=== PATIENT | male | born 1955 | race Two or more races ===

== ENCOUNTER 2016-10-16 09:48 | Emergency (ER) | payer BC, OTHER ==
[~2016-10-16] VITALS: Ht 167.6 cm; Wt 72.9 kg
[2016-10-16] MEDS ORDERED: IBUPROFEN 200 MG TABLET ONE (10:26)
[2016-10-16] MEDS ORDERED: MECLIZINE CHEWABLE 25 MG TAB ONE (10:26)
[2016-10-16] MEDS ORDERED: IBUPROFEN 200 MG TABLET PO ONE (10:30)
[2016-10-16] MEDS ORDERED: MECLIZINE CHEWABLE 25 MG TAB PO ONE (10:30)
[2016-10-16 10:49] LABS: BLOOD UREA NITROGEN 21 mg/dL (7-18)
[2016-10-16 11:21] VITALS: BP 138/75
== END 2016-10-16 11:24 | disposition home or self-care (01) ==
LOC: ED 11:09
DX: H81.11 Benign paroxysmal vertigo, right ear (principal); E11.9 Type 2 diabetes mellitus without complications
CPT/HCPCS: 36415; 80048; 99283

== ENCOUNTER 2020-11-23 20:52 | Inpatient (IN) | payer MEDICARE, MEDICAID ==
[~2020-11-23] VITALS: Ht 152.4 cm; Wt 69.3 kg
[2020-11-23 21:37] LABS: BASOPHILS % (AUTO) 1 % (0-1); EOSINOPHILS % (AUTO) 1 % (1-7); LYMPHOCYTES % (AUTO) 11 % (22-44); MEAN CORPUSCULAR HEMOGLOBIN 29.2 pg (27.5-34.5); MEAN CORPUSCULAR HGB CONC 33.4 g/dL (33.2-36.2); MEAN PLATELET VOLUME 8.8 fL (7.4-10.4); MONOCYTES % (AUTO) 8 % (2-9); NEUTROPHILS % (AUTO) 79 % (42-75); PLATELET COUNT 199 x10^3/uL (130-400); RED BLOOD COUNT 4.18 x10^6/uL (4.38-5.82); RED CELL DISTRIBUTION WIDTH 13.1 % (9.4-14.8)
[2020-11-23 21:43] LABS: ANION GAP 8 mmol/L (5-15); CALCIUM 8.8 mg/dL (8.5-10.1); CHLORIDE 104 mmol/L (98-107); CREATININE 1.36 mg/dL (0.7-1.3)
--- NOTE | 2020-11-23 23:15 | NUR ---
USING CARE CLINICIAN [id number] SELENE CURTIS C/O OF SORE IN LEFT FOOT 4TH DIGIT TOE SINCE September PT TOE APPEARS SWOLLEN AND DICOLORATION. PT APPEARS IN NAD. BREATHIG EVEN AND UNLABORED. ATTACHED TO MONITORS. VSS WITH ELVATED HR. WCTM Addendum: 11/24/20 at 0027 by [email or web address] PT TOE DOES NOT HAVE CAP REFIL AND APPEARS NECROTIC.
[2020-11-23] MEDS ORDERED: VANCOMYCIN 1,600 MG in SODIUM CHLORIDE 0.9% 250 ML IV ONE (23:45)
[2020-11-24] MEDS ORDERED: CEFEPIME 2 GM in DEXTROSE 5% 100 ML IV ONE
[2020-11-24] MEDS ORDERED: SODIUM CHLORIDE 0.9% 1,000ML IVBOLUS ONE
--- NOTE | 2020-11-24 00:20 | NUR ---
using clicker operator sharif. [id number].
[2020-11-24] MEDS ORDERED: ONDANSETRON 2MG/ML, 2ML IVPush PRN (00:30)
[2020-11-24] MEDS ORDERED: VANCOMYCIN PER PHARMACY MC PRN ×2 (00:30)
[2020-11-24] MEDS ORDERED: BISACODYL 10 MG SUPP PR PRN (00:30)
[2020-11-24] MEDS ORDERED: POLYETHYLENE GLYCOL 17 GM PACKET PO PRN (00:30)
--- NOTE | 2020-11-24 00:40 | NUR ---
GAVE REPORT TO [place] [id number]
[2020-11-24] MEDS ORDERED: METO50TA82 PO (00:45)
[2020-11-24] MEDS ORDERED: SERT50TA28 PO (00:45)
[2020-11-24] MEDS ORDERED: DAPA1TAB3 PO (00:45)
[2020-11-24] MEDS ORDERED: ATOR20TA37 PO (00:45)
[2020-11-24] MEDS ORDERED: LISI-170 PO (00:45)
[2020-11-24 01:16] VITALS: BP 134/80
[2020-11-24] MEDS: SODIUM CHLORIDE 0.9% 1,000 ML IV SCH ×3 (01:26→20:32)
[2020-11-24 01:30] LABS: HCT (SEDRATE) 36.5 % (39.2-51.8)
[2020-11-24] MEDS: HEPARIN 5,000 UNITS/ML, 1ML SQ SCH ×4 (01:56→23:15)
[2020-11-24] MEDS: INSULIN LISPRO 100 UNITS/ML, PEN SQ-INSULIN SCH ×5 (01:57→20:55)
[2020-11-24] MEDS: ACETAMINOPHEN 325 MG TABLET PO PRN (02:24)
[2020-11-24 02:28] LABS: BASOPHILS % (AUTO) 0 % (0-1); EOSINOPHILS % (AUTO) 1 % (1-7); LYMPHOCYTES % (AUTO) 11 % (22-44); MEAN CORPUSCULAR HEMOGLOBIN 29.2 pg (27.5-34.5); MEAN CORPUSCULAR HGB CONC 33.4 g/dL (33.2-36.2); MONOCYTES % (AUTO) 8 % (2-9); NEUTROPHILS % (AUTO) 80 % (42-75); PLATELET COUNT 186 x10^3/uL (130-400); RED BLOOD COUNT 3.97 x10^6/uL (4.38-5.82); RED CELL DISTRIBUTION WIDTH 12.6 % (9.4-14.8)
[2020-11-24 02:40] LABS: ANION GAP 6 mmol/L (5-15); CALCIUM 8.7 mg/dL (8.5-10.1); CHLORIDE 107 mmol/L (98-107); CREATININE 1.02 mg/dL (0.7-1.3)
[2020-11-24] MEDS: PIPERACILLIN/TAZO 3.375 GM in DEXTROSE 5% 50 ML IV SCH ×4 (03:26→20:32)
[2020-11-24 06:49] VITALS: BP 105/68
[2020-11-24] MEDS: METOPROLOL TARTRATE 25 MG TAB PO SCH ×2 (07:47→20:33)
[2020-11-24] MEDS: LISINOPRIL 40 MG TABLET PO SCH (07:47)
[2020-11-24] MEDS: SERTRALINE 50MG TABLET PO SCH (07:48)
[2020-11-24] MEDS: metFORMIN 500 MG TABLET PO SCH ×2 (08:00→17:00)
[2020-11-24] MEDS: VANCOMYCIN 1,300 MG in SODIUM CHLORIDE 0.9% 250 ML IV SCH (13:17)
[2020-11-24 14:32] VITALS: BP 118/77
[2020-11-24] MEDS: morphine SULFATE 10 MG/ML, 1ML IVPush PRN (15:24)
[2020-11-24] MEDS ORDERED: GADOTERATE 7.5 MMOL/15ML SYR ONE (17:15)
[2020-11-24 20:29] VITALS: BP 162/93
[2020-11-24] MEDS: ATORVASTATIN 80 MG TABLET PO SCH (20:33)
[2020-11-25] MEDS: VANCOMYCIN 1,300 MG in SODIUM CHLORIDE 0.9% 250 ML IV SCH (00:53)
[2020-11-25 00:58] VITALS: BP 136/78
[2020-11-25] MEDS: ACETAMINOPHEN 325 MG TABLET PO PRN ×2 (01:02→21:11)
[2020-11-25] MEDS: PIPERACILLIN/TAZO 3.375 GM in DEXTROSE 5% 50 ML IV SCH ×4 (03:10→21:00)
[2020-11-25] MEDS: SODIUM CHLORIDE 0.9% 1,000 ML IV SCH ×3 (03:10→23:43)
[2020-11-25 06:30] VITALS: BP 101/65
[2020-11-25] MEDS: INSULIN LISPRO 100 UNITS/ML, PEN SQ-INSULIN SCH ×4 (07:00→20:55)
[2020-11-25] MEDS: HEPARIN 5,000 UNITS/ML, 1ML SQ SCH ×2 (07:18→16:28)
[2020-11-25] MEDS: SERTRALINE 50MG TABLET PO SCH (07:59)
[2020-11-25] MEDS: METOPROLOL TARTRATE 25 MG TAB PO SCH ×2 (07:59→21:01)
[2020-11-25] MEDS: LISINOPRIL 40 MG TABLET PO SCH (08:00)
[2020-11-25 12:37] VITALS: BP 122/77
[2020-11-25] MEDS ORDERED: FENTANYL PF 250 MCG/5ML ONE (14:57)
[2020-11-25] MEDS ORDERED: ONDANSETRON 2MG/ML, 2ML ONE (14:58)
[2020-11-25] MEDS ORDERED: PROPOFOL 10 MG/ML, 20ML ONE (14:58)
[2020-11-25 19:36] VITALS: BP 133/79
[2020-11-25] MEDS: ATORVASTATIN 80 MG TABLET PO SCH (21:01)
[2020-11-26] MEDS: HEPARIN 5,000 UNITS/ML, 1ML SQ SCH ×2 (00:30→07:46)
[2020-11-26] MEDS: morphine SULFATE 10 MG/ML, 1ML IVPush PRN (02:21)
[2020-11-26 02:23] VITALS: BP 134/79
[2020-11-26] MEDS: PIPERACILLIN/TAZO 3.375 GM in DEXTROSE 5% 50 ML IV SCH ×2 (03:26→08:57)
[2020-11-26 06:31] VITALS: BP 121/74
[2020-11-26] MEDS: INSULIN LISPRO 100 UNITS/ML, PEN SQ-INSULIN SCH ×2 (07:00→11:51)
[2020-11-26] MEDS: SODIUM CHLORIDE 0.9% 1,000 ML IV SCH (07:44)
[2020-11-26] MEDS: METOPROLOL TARTRATE 25 MG TAB PO SCH (07:44)
[2020-11-26] MEDS: LISINOPRIL 40 MG TABLET PO SCH (07:44)
[2020-11-26] MEDS: SERTRALINE 50MG TABLET PO SCH (07:44)
[2020-11-26] MEDS ORDERED: AMOX1TAB64 PO (08:44)
[2020-11-26 12:29] VITALS: BP 130/80
== END 2020-11-26 13:42 | disposition home health service (06) | DRG 854 ==
LOC: ED 23:49 → EDIP 11-24 00:14 → 3N 11-24 01:07 → DCLOUNGE 11-26 13:13
PROVIDERS: ADMIT Internal Medicine; ATTEND Hospitalist
PROC: 0Y6W0Z0 Detachment at Left 4th Toe, Complete, Open Approach (ICD-10-PCS; principal; 2020-11-25 14:00)
DX: A40.1 Sepsis due to streptococcus, group B (principal); L03.116 Cellulitis of left lower limb; M86.8X7 Other osteomyelitis, ankle and foot; E11.65 Type 2 diabetes mellitus with hyperglycemia; E11.621 Type 2 diabetes mellitus with foot ulcer; L97.529 Non-pressure chronic ulcer of other part of left foot with unspecified severity; D64.9 Anemia, unspecified; E11.42 Type 2 diabetes mellitus with diabetic polyneuropathy; B95.1 Streptococcus, group B, as the cause of diseases classified elsewhere; Z20.822 Contact with and (suspected) exposure to COVID-19; E11.69 Type 2 diabetes mellitus with other specified complication; E11.51 Type 2 diabetes mellitus with diabetic peripheral angiopathy without gangrene; I10 Essential (primary) hypertension; I25.10 Atherosclerotic heart disease of native coronary artery without angina pectoris; Z82.49 Family history of ischemic heart disease and other diseases of the circulatory system; Z95.1 Presence of aortocoronary bypass graft
CPT/HCPCS: 36415; 80048; 82962; 83036; 83605; 85025; 85651; 86140; 87040; 87070; 87075; 87147; 87176; 87205; 87635; 88305; 88311; 93922; 96374; 99285; G0378; J1644; J2405; J2543; J2704; J3010; J3370; A9575; J1815; J2270; J7030; J7050

== ENCOUNTER 2021-01-04 19:09 | Emergency (ER) | payer MEDICARE, MEDICAID ==
[~2021-01-04] VITALS: Ht 167.6 cm; Wt 71.0 kg
[~2021-01-04 19:09] MED LIST: AMOX1TAB64 PO; ATOR20TA37 PO; DAPA1TAB3 PO; LISI-170 PO; METO50TA82 PO; SERT50TA28 PO
[2021-01-04] MEDS ORDERED: SODIUM CHLORIDE 0.9% 1,000ML IVBOLUS ONE (20:00)
--- NOTE | 2021-01-04 20:04 | NUR ---
PT PRESENTS TO ED WITH FEVER AND CHILLS. PT HAD LEFT RING TOE AMPUTATED 5-6 WEEKS AGO AND HAS NOT HAD IT LOOKED AT OUTPATIENT. PT IN GOWN, RESTING ON GURNEY, AND PLACED ON CONTINUOUS MONITORING.
[2021-01-04 20:15] LABS: BASOPHILS % (AUTO) 0 % (0-1); EOSINOPHILS % (AUTO) 1 % (1-7); HCT (SEDRATE) 37.1 % (39.2-51.8); LYMPHOCYTES % (AUTO) 6 % (22-44); MEAN CORPUSCULAR HEMOGLOBIN 28.2 pg (27.5-34.5); MEAN CORPUSCULAR HGB CONC 33.2 g/dL (33.2-36.2); MEAN PLATELET VOLUME 8.7 fL (7.4-10.4); MONOCYTES % (AUTO) 5 % (2-9); NEUTROPHILS % (AUTO) 88 % (42-75); PLATELET COUNT 233 x10^3/uL (130-400); RED BLOOD COUNT 4.27 x10^6/uL (4.38-5.82)
[2021-01-04 20:25] LABS: ALBUMIN 3.7 g/dL (3.4-5.0); ANION GAP 11 mmol/L (5-15); CALCIUM 9.1 mg/dL (8.5-10.1); CHLORIDE 103 mmol/L (98-107); CREATININE 1.52 mg/dL (0.7-1.3)
[2021-01-04] MEDS ORDERED: AMOXICILLIN/CLAV 875-125MG TABLET PO ONE (20:30)
[2021-01-04] MEDS ORDERED: AMOXICILLIN/CLAV 875-125MG TABLET ONE (20:35)
--- NOTE | 2021-01-04 20:45 | NUR ---
PT UP TO BATHROOM, RESTARTED IVF, ANTIBIOTICS GIVEN. PT RESTING ON GURNEY, DENIES NEEDS AT THIS TIME.
[2021-01-04] MEDS ORDERED: BACITRACIN ZINC OINT 500U/GM, 0.9 GM ONE (21:05)
[2021-01-04 21:31] VITALS: BP 136/70
--- NOTE | 2021-01-04 21:31 | NUR ---
Patient given discharge instructions and they have confirmed that they understand the instructions. Patient ambulatory with steady gait.
== END 2021-01-04 21:46 | disposition home or self-care (01) ==
LOC: ED 21:09
DX: M86.672 Other chronic osteomyelitis, left ankle and foot (principal); L03.116 Cellulitis of left lower limb; E11.9 Type 2 diabetes mellitus without complications; Z89.422 Acquired absence of other left toe(s)
CPT/HCPCS: 36415; 73630; 80048; 82040; 83605; 85025; 85651; 86140; 87040; 96360; 99284; J7030